=== PATIENT | female | born 1985 | race American Indian/Alaskan Native ===

== ENCOUNTER 2016-11-14 19:54 | Emergency (ER) | payer SELFPAY ==
--- NOTE | 2016-11-14 21:39 | Emergency Department Report ---
Chief Complaint: GI Bleed Stated Complaint: CONSTIPATION Time Seen by Provider: 11/14/16 21:34 - HPI History of Present Illness: 89-year-old female comes in complaining of mid abdominal pain. Patient with the left leg [place] she was diagnosed with constipation. Patient reports that she has used Dulcolax enema 2 Bentyl as well as MiraLAX with no resolution.. Patient reports that she was able to have distal small bowel movement patient reports that she had pebble size the BM yesterday. - Exam Physical Exam: Leg and oriented 3 she appears to be very uncomfortable. Abdomen soft mild tenderness to the left epigastric and left upper quadrant pain. Providers able to palpate stool in her descending colon. MSE screening note: Focused history and physical exam performed. Due to findings the following was ordered: Labs were ordered x-ray abdominal pelvic. Urine test ordered patient be evaluated in the main ER ED Disposition for MSE Condition: Stable Forms: Accompanied Note
[2016-11-14 22:05] LABS: Hematocrit 35.6 % (30.3-42.9); Hemoglobin 11.4 gm/dl (10.1-14.3); Mean Corpuscular HGB Conc 32 % (30-34); Mean Corpuscular Hemoglobin 27 pg (28-32); Mean Corpuscular Volume 83 fl (79-97); Platelet Count 296 K/mm3 (140-440); Red Cell Distribution Width 16.4 % (13.2-15.2)
[2016-11-14 22:29] LABS: BUN/Creatinine Ratio 7.14; Blood Urea Nitrogen 5 mg/dL (7-17); Calcium 9.1 mg/dL (8.4-10.2); Carbon Dioxide 23 mmol/L (22-30); Chloride 99.4 mmol/L (98-107); Glucose 88 mg/dL (65-100); Potassium 3.9 mmol/L (3.6-5.0); Sodium 137 mmol/L (137-145)
[2016-11-14 22:32] LABS: Anion Gap 19 mmol/L
[2016-11-15 04:01] LABS: Bilirubin,Urine NEG (Negative); Blood,Urine SM (Negative); Ketones,Urine NEG (Negative); Leukocyte Esterase,Urine NEG (Negative); Mucus,Urine 2+ /HPF; Nitrite,Urine NEG (Negative); Protein,Urine <15 mg/dL mg/dL (Negative); Urobilinogen,Urine < 2.0 mg/dL (<2.0)
--- NOTE | 2016-11-15 07:47 | XRay Report ---
ABDOMEN TWO VIEWS: History: Abdominal pain, constipation. There is no evidence of free air beneath the diaphragms. The gas pattern within the abdomen is unremarkable. There is no evidence of bowel dilatation, significant air-fluid levels, or masses. No significant fecal retention. The psoas margins are adequately visualized. Cholecystectomy changes and bilateral Essure devices are noted. IMPRESSION: Unremarkable abdomen.
[2016-11-15] MEDS ORDERED: PROTONIX IV ONE (11:14)
[2016-11-15] MEDS ORDERED: ZOFRAN IV ONE (11:14)
[2016-11-15] MEDS ORDERED: NACL 0.9% 1000 ML 1,000 ML IV ONE (11:14)
[2016-11-15] MEDS ORDERED: ALUM-MAG HYDROX-SIMETH 200-200-20MG/5ML PO ONE (11:14)
[2016-11-15] MEDS ORDERED: PEPCID IV ONE (11:15)
--- NOTE | 2016-11-15 11:15 | Emergency Department Report ---
[id number] Time Seen by Provider: 11/14/16 21:34 Source: patient, family Mode of arrival: Ambulatory Limitations: No Limitations - History of Present Illness Initial Comments: This is a 31-year-old female, previously unknown to me. She has been seen by gastroenterology, Dr. Rosa in the past. In 2013, she was diagnosed with a large duodenal bulb ulcer, with a high-grade partial gastric outlet obstruction. The patient presents to the ER complaining of abdominal pain. The abdominal pain is crampy and achy. She was seen at another hospital last week, and presumptively diagnosed with constipation. She reports performing enemas, taking stool softeners, magnesium citrate, and laxative. She reports defecating small hard breonna bowel movements. She reports a few episodes of nausea and vomiting which were blood tinged. However, she denies hematemesis, she denies bright red blood per rectum, she denies hematochezia. Abdominal pain has been present for almost 2 weeks. It increases with palpation and decreases with rest. MD Complaint: abdominal pain -: Gradual, week(s) Location: diffuse Severity: moderate Severity scale (0 -10): 9 Quality: cramping Improves With: rest Worsens With: movement Associated Symptoms: nausea, vomiting. denies: diarrhea, fever, chills, constipation, dysuria, hematochezia, hematuria - Related Data Home Medications Medication Instructions Recorded Confirmed Last Taken Omeprazole 40 mg PO DAILY 11/15/16 11/15/16 Unknown Previous Rx's Medication Instructions Recorded Last Taken Type Dicyclomine [Bentyl] 10 mg PO QID PRN #20 capsule 11/15/16 Unknown Rx Famotidine [Pepcid] 20 mg PO QDAY #30 tablet 11/15/16 Unknown Rx Ondansetron [Zofran Odt] 4 mg PO QID PRN #20 tab.rapdis 11/15/16 Unknown Rx Allergies Allergy/AdvReac Type Severity Reaction Status Date / Time clarithromycin [From Biaxin] Allergy Hives Verified 07/28/14 11:59 ED Review of Systems ROS: Stated complaint: CONSTIPATION Other details as noted in HPI Constitutional: denies: fever Eyes: denies: eye discharge ENT: denies: epistaxis Respiratory: denies: cough Cardiovascular: denies: chest pain Gastrointestinal: abdominal pain, nausea. denies: melena, hematochezia Genitourinary: denies: urgency, dysuria, discharge Musculoskeletal: denies: joint swelling, arthralgia Skin: denies: rash, lesions Neurological: denies: headache Psychiatric: denies: anxiety ED Past Medical Hx - Past Medical History Previous Medical History?: Yes Hx Hypertension: No Hx GERD: Yes Additional medical history: ovarian cyst - Surgical History Hx Cholecystectomy: Yes (IN 2008) - Social History Smoking Status: Never Smoker - Medications Home Medications: Home Medications Medication Instructions Recorded Confirmed Last Taken Type Dicyclomine [Bentyl] 10 mg PO QID PRN #20 capsule 11/15/16 Unknown Rx Famotidine [Pepcid] 20 mg PO QDAY #30 tablet 11/15/16 Unknown Rx Omeprazole 40 mg PO DAILY 11/15/16 11/15/16 Unknown History Ondansetron [Zofran Odt] 4 mg PO QID PRN #20 tab.rapdis 11/15/16 Unknown Rx ED Physical Exam - General Limitations: No Limitations General appearance: alert, in no apparent distress - Head Head exam: Present: atraumatic, normocephalic - Eye Eye exam: Present: normal appearance - ENT ENT exam: Present: normal exam, mucous membranes moist - Neck Neck exam: Present: normal inspection, full ROM. Absent: tenderness, meningismus - Respiratory Respiratory exam: Present: normal lung sounds bilaterally. Absent: respiratory distress, wheezes, rales, rhonchi, stridor, chest wall tenderness - Cardiovascular Cardiovascular Exam: Present: regular rate, normal rhythm, normal heart sounds. Absent: bradycardia, tachycardia, irregular rhythm, systolic murmur, diastolic murmur, rubs, gallop - GI/Abdominal GI/Abdominal exam: Present: soft, tenderness (left upper quadrant, epigastric tenderness, no rebound, guarding or peritoneal signs.), normal bowel sounds. Absent: distended, guarding, rebound, rigid - Rectal Rectal exam: Present: normal inspection, normal rectal tone, heme (-) stool, other (during the rectal examination, I am escorted by nurse Neda Tran) - Extremities Exam Extremities exam: Present: normal inspection, full ROM, normal capillary refill. Absent: tenderness, pedal edema, joint swelling, calf tenderness - Back Exam Back exam: Present: normal inspection, full ROM. Absent: tenderness, CVA tenderness (R), CVA tenderness (L), muscle spasm, paraspinal tenderness, vertebral tenderness - Neurological Exam Neurological exam: Present: alert, oriented X3, normal gait, other (Extraocular movements intact. Tongue midline. No facial droop. Facial sensation intact to light touch in the V1, V2, V3 distribution bilaterally. 5 and 5 strength in 4 extremities.. Sensation is intact to light touch in 4 extremities.). Absent : motor sensory deficit - Psychiatric Psychiatric exam: Present: normal affect, normal mood - Skin Skin exam: Present: warm, dry, intact, normal color. Absent: rash ED Course Vital Signs 11/15/16 11/15/16 11/15/16 08:23 08:24 08:27 Temperature Pulse Rate Respiratory Rate Blood Pressure 113/72 113/72 Blood Pressure [Left] O2 Sat by Pulse 100 99 Oximetry 11/15/16 11/15/16 11/15/16 08:31 08:33 09:00 Temperature 98.6 F Pulse Rate 65 Respiratory 12 12 Rate Blood Pressure 117/73 100/69 Blood Pressure 113/72 [Left] O2 Sat by Pulse 99 99 100 Oximetry 11/15/16 11/15/16 11/15/16 10:01 11:00 12:01 Temperature Pulse Rate Respiratory Rate Blood Pressure 116/80 109/76 118/73 Blood Pressure [Left] O2 Sat by Pulse 100 100 Oximetry 11/15/16 14:00 Temperature Pulse Rate 72 Respiratory 16 Rate Blood Pressure Blood Pressure 114/76 [Left] O2 Sat by Pulse 100 Oximetry - Reevaluation(s) Reevaluation #1: 11/15/16 14:23 Differential diagnosis: GERD, gastritis, recurrent obstruction, constipation, obstipation assessment and plan: 31-year-old female with history of partial gastric outlet obstruction, known duodenal bulb ulcer. Minimally tender in the left upper quadrant. No lower abdominal tenderness, rebound or guarding. Guaiac negative. Hemoglobin and hematocrit stable. She reports vomiting with blood tinged emesis a few times. Most likely [place] versus ulcer. The patient was given oral contrast for a CT scan of the abdomen and pelvis which she tolerated without difficulty. Hemoglobin and hematocrit unremarkable, and a contrast CAT scan of the abdomen and pelvis with IV and oral contrast demonstrated no acute surgical disease. The patient is instructed to avoid NSAIDs, alcohol,, start Pepcid, and to follow-up with outpatient gastroenterology. Return precautions are extensively reviewed. ED Medical Decision Making - Lab Data Result diagrams: 11/14/16 21:55 11/14/16 21:55 Vital Signs 11/15/16 11/15/16 11/15/16 08:23 08:24 08:27 Temperature Pulse Rate Respiratory Rate Blood Pressure 113/72 113/72 Blood Pressure [Left] O2 Sat by Pulse 100 99 Oximetry 11/15/16 11/15/16 11/15/16 08:31 08:33 09:00 Temperature 98.6 F Pulse Rate 65 Respiratory 12 12 Rate Blood Pressure 117/73 100/69 Blood Pressure 113/72 [Left] O2 Sat by Pulse 99 99 100 Oximetry 11/15/16 11/15/16 11/15/16 10:01 11:00 12:01 Temperature Pulse Rate Respiratory Rate Blood Pressure 116/80 109/76 118/73 Blood Pressure [Left] O2 Sat by Pulse 100 100 Oximetry Lab Results 11/14/16 11/14/16 11/15/16 Range/Units 21:55 21:55 02:09 WBC 9.0 (4.5-11.0) K/mm3 RBC 4.30 (3.65-5.03) M/mm3 Hgb 11.4 (10.1-14.3) gm/dl Hct 35.6 (30.3-42.9) % MCV 83 (79-97) fl MCH 27 L (28-32) pg MCHC 32 (30-34) % RDW 16.4 H (13.2-15.2) % Plt Count 296 (140-440) K/mm3 Sodium 137 (137-145) mmol/L Potassium 3.9 (3.6-5.0) mmol/L Chloride 99.4 (98-107) mmol/L Carbon Dioxide 23 (22-30) mmol/L Anion Gap 19 mmol/L BUN 5 L (7-17) mg/dL Creatinine 0.7 (0.7-1.2) mg/dL Estimated GFR > 60 ml/min BUN/Creatinine Ratio 7.14 % Glucose 88 (65-100) mg/dL Calcium 9.1 (8.4-10.2) mg/dL Urine Color Yellow (Yellow) Urine Turbidity Clear (Clear) Urine pH 5.0 (5.0-7.0) Ur Specific [place] 1.017 (1.003-1.030) Urine Protein <15 mg/dl (Negative) mg/dL Urine Glucose (UA) Neg (Negative) mg/dL Urine Ketones Neg (Negative) mg/dL Urine Blood Sm (Negative) Urine Nitrite Neg (Negative) Urine Bilirubin Neg (Negative) Urine Urobilinogen < 2.0 (<2.0) mg/dL Ur Leukocyte Esterase Neg (Negative) Urine WBC (Auto) 1.0 (0.0-6.0) /HPF Urine RBC (Auto) 3.0 (0.0-6.0) /HPF U Epithel Cells (Auto) 2.0 (0-13.0) /HPF Urine Mucus 2+ /HPF Urine HCG, Qual Negative (Negative) - Radiology Data Radiology results: report reviewed, image reviewed Abdominal x-ray within normal limits less unremarkable. CT scan of the abdomen and pelvis negative. Status post cholecystectomy. The appendix is within normal limits. Critical care attestation.: If time is entered above; I have spent that time in minutes in the direct care of this critically ill patient, excluding procedure time. ED Disposition Clinical Impression: Abdominal pain Disposition: DISCHARGED TO HOME OR SELFCARE Is pt being admited?: No Does the pt Need Aspirin: No Condition: Good Instructions: Gastritis (ED), Helicobacter Pylori (ED), Peptic Ulcer (ED) Additional Instructions: CT scan of the abdomen and pelvis demonstrated no acute disease that required emergent surgical intervention or antibiotic therapy. Symptoms most likely coming from recurrent duodenal ulcers/upper GI ulcers. Take the pain medication as directed. Follow-up with your primary care doctor or shower attendant within the next week. The patient service hotline through [facility] can be recent the following link/phone number: 3.041.GO.TOOJ ([phone]) Return to the ER right away with new pain, worsened pain, migration of pain, fevers or chills, nausea or vomiting, inability to tolerate liquid feeds. Avoid consumption of alcohol, Motrin, ibuprofen, Aleve, aspirin, NSAIDs. Prescriptions: Dicyclomine [Bentyl] 10 mg PO QID PRN #20 capsule PRN Reason: Pain Famotidine [Pepcid] 20 mg PO QDAY #30 tablet Ondansetron [Zofran Odt] 4 mg PO QID PRN #20 tab.rapdis PRN Reason: Nausea Referrals: PRIMARY CARE, [Primary Care Provider] - 3-5 Days ISHAN MONTENEGRO MD [Staff Physician] - 3-5 Days FELIPE ROSA MD [Staff Physician] - 3-5 Days Forms: Accompanied Note
[2016-11-15] MEDS ORDERED: NACL ONE (12:28)
--- NOTE | 2016-11-15 13:57 | Cat Scan Report ---
CT SCAN OF THE ABDOMEN AND PELVIS WITH CONTRAST: HISTORY: Abdominal pain. TECHNIQUE: Helical CT in 1.25mm intervals following IV contrast. Sagittal and coronal reconstructions. FINDINGS: Compared to 07/30/14. The liver is normal in size and is without focal defect. No gallstones or biliary dilatation are noted. Cholecystectomy changes. The spleen and pancreas demonstrate a normal size and attenuation with no evidence of abnormal mass. The kidneys are normal in size and position with no evidence of hydronephrosis or mass. The adrenal glands are normal. There is no intestinal obstruction or ascites. Normal appendix. The abdominal aorta is normal. The uterus and both adnexa are unremarkable. There is no evidence of peritoneal air or fluid. There is no evidence of any abnormal masses or fluid collections within the pelvis. No adenopathy is identified. The bladder is normal. IMPRESSION: Unremarkable CT scan of the abdomen and pelvis with contrast. No acute abdominal process.
[2016-11-15 15:36] VITALS: BP 114/76
== END 2016-11-15 14:12 | disposition home or self-care (01) ==
LOC: ED 19:54
DX: R10.84 Generalized abdominal pain (principal); R11.2 Nausea with vomiting, unspecified; I10 Essential (primary) hypertension; K21.9 Gastro-esophageal reflux disease without esophagitis; Z88.1 Allergy status to other antibiotic agents
CPT/HCPCS: 36415; 74020; 74177; 80048; 81001; 81025; 82271; 85027; 96361; 96374; 96375; 99285; C9113; J2405; J7030; Q9967

== ENCOUNTER 2018-10-29 01:25 | Emergency (ER) | payer SELFPAY ==
[2018-10-29 01:34] VITALS: BP 113/68
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
[2018-10-29] MEDS ORDERED: CLEOCIN PO ONE (04:39)
[2018-10-29] MEDS ORDERED: MOTRIN PO ONE (04:39)
[2018-10-29] MEDS ORDERED: NORCO 5/325 PO ONE (05:15)
== END 2018-10-29 05:43 | disposition home or self-care (01) ==
LOC: ED 01:25
DX: K02.9 Dental caries, unspecified (principal); K05.00 Acute gingivitis, plaque induced; M54.5 Low back pain; I10 Essential (primary) hypertension; K21.9 Gastro-esophageal reflux disease without esophagitis; F17.200 Nicotine dependence, unspecified, uncomplicated; Z90.49 Acquired absence of other specified parts of digestive tract; Z88.1 Allergy status to other antibiotic agents
CPT/HCPCS: 99282

== ENCOUNTER 2020-08-16 18:53 | Emergency (ER) | payer MEDICAID, OTHER ==
[2020-08-16 19:54] VITALS: BP 127/78
== END 2020-08-16 22:00 | disposition left against medical advice (07) ==
LOC: ED 18:53
DX: R10.9 Unspecified abdominal pain (principal); M54.6 Pain in thoracic spine; M25.561 Pain in right knee; Z53.21 Procedure and treatment not carried out due to patient leaving prior to being seen by health care provider